=== PATIENT | female | born 1985 | race Caucasian/White ===

== ENCOUNTER 2016-12-07 23:10 | Emergency (ER) | payer MEDICAID ==
[2016-12-08 00:06] VITALS: BP 146/88
== END 2016-12-08 00:06 | disposition home or self-care (01) ==
LOC: ED 23:10
DX: F41.0 Panic disorder [episodic paroxysmal anxiety] (principal)

== ENCOUNTER 2017-07-08 20:06 | Emergency (ER) | payer MEDICAID ==
[~2017-07-08] VITALS: Ht 170.2 cm; Wt 72.6 kg
[2017-07-08 20:46] VITALS: BP 161/89; Ht 170.2 cm; Wt 72.6 kg
== END 2017-07-08 22:49 | disposition left against medical advice (07) ==
LOC: ED 20:06
DX: Z53.21 Procedure and treatment not carried out due to patient leaving prior to being seen by health care provider (principal)

== ENCOUNTER 2018-02-23 19:00 | Emergency (ER) | payer MEDICAID ==
[~2018-02-23] VITALS: Ht 167.6 cm; Wt 70.5 kg
[2018-02-23 19:07] VITALS: BP 141/90; Ht 167.6 cm; Wt 70.5 kg
== END 2018-02-23 19:59 | disposition home or self-care (01) ==
LOC: ED 19:00
DX: F41.9 Anxiety disorder, unspecified (principal); R11.0 Nausea
CPT/HCPCS: Q0162

== ENCOUNTER 2018-04-15 19:48 | Emergency (ER) | payer MEDICAID ==
[~2018-04-15] VITALS: Ht 165.1 cm; Wt 61.2 kg
[2018-04-15 19:51] VITALS: Ht 165.1 cm; Wt 61.2 kg
[2018-04-15 21:09] VITALS: BP 127/75
== END 2018-04-15 21:09 | disposition home or self-care (01) ==
LOC: ED 19:48
DX: R09.89 Other specified symptoms and signs involving the circulatory and respiratory systems (principal); F20.89 Other schizophrenia; F41.9 Anxiety disorder, unspecified

== ENCOUNTER 2018-07-01 17:01 | Emergency (ER) | payer MEDICAID ==
[~2018-07-01] VITALS: Ht 165.1 cm; Wt 71.4 kg
[2018-07-01 17:15] VITALS: Ht 165.1 cm; Wt 71.4 kg
[2018-07-01 19:15] VITALS: BP 143/49
== END 2018-07-01 19:15 | disposition home or self-care (01) ==
LOC: ED 17:01
DX: M54.32 Sciatica, left side (principal); F41.9 Anxiety disorder, unspecified; F20.9 Schizophrenia, unspecified

== ENCOUNTER 2018-11-04 22:51 | Emergency (ER) | payer MEDICAID ==
[~2018-11-04] VITALS: Ht 167.6 cm; Wt 70.8 kg
[2018-11-04 23:07] VITALS: Ht 167.6 cm; Wt 70.8 kg
[2018-11-05 00:59] VITALS: BP 165/93
== END 2018-11-05 00:59 | disposition home or self-care (01) ==
LOC: ED 22:51
DX: F41.9 Anxiety disorder, unspecified (principal); F20.9 Schizophrenia, unspecified; R07.89 Other chest pain; Z13.9 Encounter for screening, unspecified

== ENCOUNTER 2019-01-26 21:50 | Emergency (ER) | payer MEDICAID ==
[~2019-01-26] VITALS: Ht 167.6 cm; Wt 68.9 kg
[2019-01-26 22:07] VITALS: Ht 167.6 cm; Wt 68.9 kg
[2019-01-27 01:06] VITALS: BP 145/89
== END 2019-01-27 01:06 | disposition home or self-care (01) ==
LOC: ED 21:50
DX: M54.30 Sciatica, unspecified side (principal); F20.9 Schizophrenia, unspecified; F41.9 Anxiety disorder, unspecified
CPT/HCPCS: J1100; J1885